=== PATIENT | female | born 2000 | race American Indian/Alaskan Native ===

== ENCOUNTER 2021-10-05 18:36 | Emergency (ER) | payer OTHER ==
[2021-10-05 18:46] VITALS: BP 118/75
[2021-10-05 19:34] LABS: Basophils % (Auto) 0.2 % (0.0-1.8); Eosinophils # (Auto) 0.1 K/mm3 (0.0-0.4); Eosinophils % (Auto) 0.6 % (0.0-4.3); Lymphocytes # (Auto) 2.1 K/mm3 (1.2-5.4); Lymphocytes % (Auto) 24.7 % (13.4-35.0); Mean Corpuscular HGB Conc 32 % (30-34); Mean Corpuscular Volume 89 fl (79-97); Monocytes # (Auto) 0.8 K/mm3 (0.0-0.8); Platelet Count 277 K/mm3 (140-440); Red Blood Count 4.52 M/mm3 (3.65-5.03); Red Cell Distribution Width 14.9 % (13.2-15.2)
--- NOTE | 2021-10-05 19:35 | Emergency Department Report ---
ED General Adult HPI - General Chief complaint: Vaginal Bleeding Stated complaint: 18 WEEKS /VAGINAL BLEEDING/PAIN Time Seen by Provider: 10/05/21 18:49 Source: patient Mode of arrival: Ambulatory Limitations: No Limitations - History of Present Illness Initial comments: 21-year-old -Prydeinig female patient presents with complaints of vaginal bleeding in starting today. Patient states she is 18 weeks and noticed a small amount of blood when she wiped after urinating. She denies any dysuria/hematuria/urinary frequency, abdominal pain, nausea/vomiting, diarrhea, or constipation. She reports she does have mild vaginal itching without abnormal vaginal discharge or dyspareunia. She is G1, . She is currently following with an [facility] per patient. She denies any other past medical history - Related Data Previous Rx's Medication Instructions Recorded Last Taken Type Azithromycin 1,000 mg PO QDAY 1 Days #2 tablet 10/05/21 Unknown Rx Nitrofurantoin [place]/M-Cryst 100 mg PO Q12HR 5 Days #10 capsule 10/05/21 Unknown Rx [Macrobid CAP] metroNIDAZOLE [Flagyl TAB] 500 mg PO Q12HR 7 Days #14 tab 10/05/21 Unknown Rx Allergies Allergy/AdvReac Type Severity Reaction Status Date / Time No Known Allergies Allergy Verified 10/05/21 18:45 ED Review of Systems ROS: Stated complaint: 18 WEEKS /VAGINAL BLEEDING/PAIN Other details as noted in HPI Constitutional: denies: chills, diaphoresis, fever, malaise, weakness Respiratory: denies: cough, shortness of breath Gastrointestinal: denies: abdominal pain, nausea, vomiting, diarrhea, constipation, hematemesis, melena, hematochezia Genitourinary: abnormal menses. denies: urgency, dysuria, frequency, hematuria, discharge, dyspareunia Skin: denies: lesions Hematological/Lymphatic: denies: swollen glands ED Past Medical Hx - Medications Home Medications: Home Medications Medication Instructions Recorded Confirmed Last Taken Type Azithromycin 1,000 mg PO QDAY 1 Days #2 tablet 10/05/21 Unknown Rx Nitrofurantoin [place]/M-Cryst 100 mg PO Q12HR 5 Days #10 capsule 10/05/21 Unknown Rx [Macrobid CAP] metroNIDAZOLE [Flagyl TAB] 500 mg PO Q12HR 7 Days #14 tab 10/05/21 Unknown Rx ED Physical Exam - General Limitations: No Limitations General appearance: alert, in no apparent distress - Head Head exam: Present: atraumatic, normocephalic - Eye Eye exam: Present: normal appearance. Absent: scleral icterus - Neck Neck exam: Present: normal inspection - Respiratory Respiratory exam: Absent: respiratory distress - Cardiovascular Cardiovascular Exam: Present: regular rate - GI/Abdominal GI/Abdominal exam: Present: soft, normal bowel sounds. Absent: guarding, rebound, rigid - Neurological Exam Neurological exam: Present: alert, oriented X3 - Psychiatric Psychiatric exam: Present: normal affect, normal mood - Skin Skin exam: Present: warm, dry, intact, normal color. Absent: rash ED Course Vital Signs 10/05/21 18:43 Temperature 98.4 F Pulse Rate 95 H Respiratory 20 Rate Blood Pressure 118/75 [Left] O2 Sat by Pulse 99 Oximetry ED Medical Decision Making - Lab Data Result diagrams: 10/05/21 18:59 10/05/21 18:59 - Radiology Data Radiology results: report reviewed ULTRASOUND OBSTETRIC LIMITED INDICATION / CLINICAL INFORMATION: vaginal bleeding. Clinical Gestational Age (GA) in weeks, days: 18 weeks 5 days TECHNIQUE: Transabdominal. COMPARISON: None available. FINDINGS: Single live intrauterine in breech presentation. heart rate measures 176 bpm. measurements correspond to a gestational age of 18 weeks 1 day. Clinical gestational age is reported as 18 weeks 5 days. The cervix is poorly visualized, though appears closed. Right lateral placenta is free of the os. No acute normality. IMPRESSION: 1. Single live intrauterine with ultrasound age of 18 weeks 1 day. 2. Cervix is not well seen, though appears to be closed. 2. No significant abnormality. - Medical Decision Making 21-year-old -Prydeinig female patient presents with complaints of vaginal bleeding in starting today. Patient states she is 18 weeks and noticed a small amount of blood when she wiped after urinating. She denies any dysuria/hematuria/urinary frequency, abdominal pain, nausea/vomiting, diarrhea, or constipation. She reports she does have mild vaginal itching without abnormal vaginal discharge or dyspareunia. She is G1, . She is currently following with an [facility] per patient. She denies any other past medical history Urine shows UTI. Ultrasound shows viable 18-week 1 day IUP without acute abnormalities. Wet prep shows polymorphonuclear cells and bacterial vaginosis. Given patient's symptoms, and the finding of polymorphonuclear cells, will cover patient for gonorrhea and chlamydia. No dyspareunia or pelvic pain per patient. She is to follow-up with [facility] within 3 days for further evaluation. Recommend pelvic rest and that her partner get tested and treated for STIs. Patient left AMA after receiving Rocephin injection. Patient eloped after receiving Rocephin. Patient was contacted on the phone and states that she will return to the ED for her prescriptions for UTI, bacterial vaginosis, and possible chlamydia. Discussed importance of this and patient verbalizes understanding. Also discussed signs and symptoms that should prompt immediate return to the ED with patient, she again verbalizes understanding. Critical care attestation.: If time is entered above; I have spent that time in minutes in the direct care of this critically ill patient, excluding procedure time. ED Disposition Clinical Impression: Vaginal bleeding in , UTI in Disposition: 01 HOME / SELF CARE / HOMELESS Is pt being admited?: No Condition: Stable Instructions: Bacterial Vaginosis, Vaginal Bleeding During , Second Trimester, and Urinary Tract Infection Additional Instructions: Please follow-up with your [facility] within 3 days Prescriptions: Azithromycin 1,000 mg PO QDAY 1 Days #2 tablet metroNIDAZOLE [Flagyl TAB] 500 mg PO Q12HR 7 Days #14 tab Nitrofurantoin [place]/M-Cryst [Macrobid CAP] 100 mg PO Q12HR 5 Days #10 capsule Referrals: PRIMARY CARE, [Primary Care Provider] - 3-5 Days
[2021-10-05 19:37] LABS: Alanine Aminotransferase 37 units/L (7-56); BUN/Creatinine Ratio 23; Blood Urea Nitrogen 9 mg/dL (7-17); Calcium 9.1 mg/dL (8.4-10.2); Hemolysis Index 6
--- NOTE | 2021-10-05 20:39 | Ultrasound Report ---
ULTRASOUND OBSTETRIC LIMITED INDICATION / CLINICAL INFORMATION: vaginal bleeding. Clinical Gestational Age (GA) in weeks, days: 18 weeks 5 days TECHNIQUE: Transabdominal. COMPARISON: None available. FINDINGS: Single live intrauterine in breech presentation. heart rate measures 176 bp m. measurements correspond to a gestational age of 18 weeks 1 day. Clinical gestational age is reported as 18 weeks 5 days. The cervix is poorly visualized, though appears closed. Right lateral pl acenta is free of the os. No acute normality. IMPRESSION: 1. Single live intrauterine with ultrasound age of 18 weeks 1 day. 2. Cervix is not well seen, though appears to be closed. 2. No significant abnormality. Signer Name: Ankur Alcantara MD Signed: 10/05/2021 8:34 PM Workstation Name: [id number]
[2021-10-05 20:52] LABS: Bilirubin,Urine NEG (Negative); Blood,Urine SM (Negative); Color,Urine Yellow (Yellow); Mucus,Urine FEW /HPF; Protein,Urine <15 mg/dL mg/dL (Negative); Urobilinogen,Urine < 2.0 mg/dL (<2.0)
[2021-10-05] MEDS ORDERED: LIDOCAINE-MPF (1%) 10 MG/1 ML VIAL 5 ML INFILTRATI ONE (21:27)
== END 2021-10-05 21:45 | disposition home or self-care (01) ==
LOC: ED 18:36
DX: O46.92 Antepartum hemorrhage, unspecified, second trimester (principal); O23.42 Unspecified infection of urinary tract in pregnancy, second trimester; N39.0 Urinary tract infection, site not specified; Z3A.18 18 weeks gestation of pregnancy; Z79.899 Other long term (current) drug therapy
CPT/HCPCS: 36415; 76805; 80053; 81001; 84702; 85025; 86900; 86901; 87086; 87210; 96372; 99284; J0696; J3490; 76810